=== PATIENT | female | born 1950 | race Asian ===

== ENCOUNTER 2017-08-06 12:47 | Emergency (ER) | payer OTHER ==
[~2017-08-06] VITALS: Ht 142.2 cm; Wt 50.0 kg
[2017-08-06] MEDS ORDERED: ISOS10TA16 PO (12:57)
[2017-08-06] MEDS ORDERED: ASPI-556 PO (12:57)
[2017-08-06] MEDS ORDERED: OLAN10TA3 PO (12:57)
[2017-08-06] MEDS ORDERED: SODIUM CHLORIDE 0.9% 1,000 ML IV ONE (13:15)
[2017-08-06] MEDS ORDERED: KETOROLAC TROMETHAMINE 30 MG/ML VIAL IVP ONE (13:15)
[2017-08-06 13:37] LABS: BASOPHILS % (AUTO) 0.3 % (0.0-2.0); EOSINOPHILS % (AUTO) 1.7 % (1.0-6.0); HEMATOCRIT 30.2 % (36-46); HEMOGLOBIN 10.5 g/dL (12.0-16.0); LYMPHOCYTES # (AUTO) 1.2 K/uL (1.0-4.8); LYMPHOCYTES % (AUTO) 43.2 % (22.0-44.0); MEAN CORPUSCULAR HEMOGLOBIN 31.7 pg (26.0-34.0); MEAN CORPUSCULAR HGB CONC 34.9 G/dL (31.0-37.0); MEAN CORPUSCULAR VOLUME 91 fL (80-100); MONOCYTES # (AUTO) 0.2 K/uL (0.1-1.0); MONOCYTES % (AUTO) 7.9 % (2.0-9.0); NEUTROPHILS # (AUTO) 1.3 K/uL (1.8-7.7); NEUTROPHILS % (AUTO) 46.9 % (40.0-70.0); PLATELET COUNT (AUTO) 156 K/uL (150-450); RED BLOOD CELL COUNT(AUTO) 3.31 MIL/uL (4.00-5.20); RED CELL DISTRIBUTION WIDTH 13.1 % (11.5-14.5); WHITE BLOOD COUNT (AUTO) 2.8 K/uL (4.5-11.0)
[2017-08-06 13:42] LABS: ANION GAP 8 mmol/L (8-16); CALCIUM, TOTAL 8.2 mg/dL (8.8-10.5); CARBON DIOXIDE 28 mmol/L (22-29); CHLORIDE 96 mmol/L (98-107); CREATININE 0.67 mg/dL (0.60-1.30); GLOMERULAR FILTR. RATE CALC > 60 mL/min (>60); POTASSIUM 3.3 mmol/L (3.5-5.1); SODIUM SERUM 132 mmol/L (136-145); UREA NITROGEN, BLOOD 6 mg/dL (7-18)
[2017-08-06 13:48] LABS: ALANINE AMINOTRANSFERASE 28 U/L (12-78); ALBUMIN 3.9 g/dL (3.4-5.0); ASPARTATE AMINOTRANSFERASE 36 U/L (15-37); BILIRUBIN,TOTAL 1.2 mg/dL (0.1-1.0); TOTAL PROTEIN, SERUM 7.7 g/dL (6.4-8.2)
[2017-08-06 14:24] LABS: APPEARANCE,URINE CLEAR (CLEAR); GLUCOSE, URINE (UA) NEGATIVE (NEGATIVE); KETONES,URINE NEGATIVE (NEGATIVE); LEUKOCYTE ESTERASE ,URINE TRACE (NEGATIVE); PROTEIN,URINE NEGATIVE (NEGATIVE)
[2017-08-06 14:36] LABS: ADD UA MICROSCOPIC YES; OCCULT BLOOD,URINE SMALL (NEGATIVE)
[2017-08-06 14:37] LABS: WBC,URINE 0-2 /HPF (0-5)
[2017-08-06 15:11] VITALS: BP 114/68
== END 2017-08-06 15:29 | disposition home or self-care (01) ==
LOC: EMS 12:48
DX: R10.9 Unspecified abdominal pain (principal)
CPT/HCPCS: 36415; 71010; 74176; 80053; 81001; 83690; 84484; 85025; 93005; 96361; 96374; 99285; J1885; J7030

== ENCOUNTER 2018-12-07 16:19 | Emergency (ER) | payer OTHER ==
[~2018-12-07] VITALS: Ht 147.3 cm; Wt 44.1 kg
[~2018-12-07 16:19] MED LIST: ARIP5TAB8 PO; SIMV-261 PO; TRAZ-219 PO
[2018-12-07 17:07] LABS: BASOPHILS % (AUTO) 0.5 % (0.0-2.0); EOSINOPHILS % (AUTO) 5.1 % (1.0-6.0); HEMATOCRIT 28.6 % (36-46); LYMPHOCYTES # (AUTO) 1.3 K/uL (1.0-4.8); LYMPHOCYTES % (AUTO) 47.7 % (22.0-44.0); MEAN CORPUSCULAR HEMOGLOBIN 31.7 pg (26.0-34.0); MEAN CORPUSCULAR HGB CONC 34.9 G/dL (31.0-37.0); MEAN CORPUSCULAR VOLUME 91 fL (80-100); MONOCYTES # (AUTO) 0.2 K/uL (0.1-1.0); MONOCYTES % (AUTO) 9.1 % (2.0-9.0); NEUTROPHILS % (AUTO) 37.6 % (40.0-70.0); PLATELET COUNT (AUTO) 222 K/uL (150-450); RED BLOOD CELL COUNT(AUTO) 3.15 MIL/uL (4.00-5.20); RED CELL DISTRIBUTION WIDTH 12.6 % (11.5-14.5)
[2018-12-07 17:13] LABS: APPEARANCE,URINE CLEAR (CLEAR); BILIRUBIN,URINE NEGATIVE (NEGATIVE); GLUCOSE, URINE (UA) NEGATIVE (NEGATIVE); KETONES,URINE NEGATIVE (NEGATIVE); LEUKOCYTE ESTERASE ,URINE TRACE (NEGATIVE); NITRATE,URINE NEGATIVE (NEGATIVE); OCCULT BLOOD,URINE SMALL (NEGATIVE); PROTEIN,URINE NEGATIVE (NEGATIVE)
[2018-12-07 17:22] LABS: ANION GAP 11 mmol/L (8-16); CALCIUM, TOTAL 8.7 mg/dL (8.8-10.5); CARBON DIOXIDE 24 mmol/L (22-29); CHLORIDE 92 mmol/L (98-107); CREATININE 0.57 mg/dL (0.60-1.30); GLOMERULAR FILTR. RATE CALC > 60 mL/min (>60); GLUCOSE,RANDOM 92 mg/dL (70-110); POTASSIUM 4.1 mmol/L (3.5-5.1); SODIUM SERUM 127 mmol/L (136-145); UREA NITROGEN, BLOOD 11 mg/dL (7-18)
[2018-12-07 17:29] LABS: ALANINE AMINOTRANSFERASE 30 U/L (12-78); ALBUMIN 3.8 g/dL (3.4-5.0); ALKALINE PHOSPHATASE 223 U/L (46-116); ASPARTATE AMINOTRANSFERASE 47 U/L (15-37); BILIRUBIN,TOTAL 0.6 mg/dL (0.1-1.0); TOTAL PROTEIN, SERUM 8.3 g/dL (6.4-8.2)
[2018-12-07 17:35] LABS: BACTERIA,URINE None Seen /HPF (None Seen); RBC,URINE 0-2 /HPF (0-2); SQUAMOUS EPITHELIAL CELL,UR Few /LPF (None Seen); WBC,URINE 0-2 /HPF (0-5)
[2018-12-07] MEDS ORDERED: IBUPROFEN 400 MG TABLET PO ONE (21:15)
[2018-12-07 21:30] VITALS: BP 144/78
== END 2018-12-07 23:31 | disposition home or self-care (01) ==
LOC: EMS 16:20
DX: E87.1 Hypo-osmolality and hyponatremia (principal); M25.562 Pain in left knee; G89.29 Other chronic pain; D72.829 Elevated white blood cell count, unspecified; F32.9 Major depressive disorder, single episode, unspecified; E78.00 Pure hypercholesterolemia, unspecified
CPT/HCPCS: 29530

== ENCOUNTER 2018-12-21 18:46 | Emergency (ER) | payer OTHER ==
[~2018-12-21] VITALS: Ht 142.2 cm; Wt 50.0 kg
[2018-12-21] MEDS ORDERED: LIDOCAINE 5% TRANSDERMAL PATCH TD ONE (21:30)
[2018-12-21 21:32] LABS: BASOPHILS % (AUTO) 0.5 % (0.0-2.0); EOSINOPHILS % (AUTO) 3.1 % (1.0-6.0); HEMATOCRIT 27.7 % (36-46); HEMOGLOBIN 9.6 g/dL (12.0-16.0); LYMPHOCYTES # (AUTO) 1.8 K/uL (1.0-4.8); LYMPHOCYTES % (AUTO) 51.7 % (22.0-44.0); MEAN CORPUSCULAR HEMOGLOBIN 31.5 pg (26.0-34.0); MEAN CORPUSCULAR HGB CONC 34.7 G/dL (31.0-37.0); MEAN CORPUSCULAR VOLUME 91 fL (80-100); MONOCYTES # (AUTO) 0.2 K/uL (0.1-1.0); MONOCYTES % (AUTO) 7.2 % (2.0-9.0); NEUTROPHILS # (AUTO) 1.3 K/uL (1.8-7.7); NEUTROPHILS % (AUTO) 37.5 % (40.0-70.0); PLATELET COUNT (AUTO) 287 K/uL (150-450); RED BLOOD CELL COUNT(AUTO) 3.05 MIL/uL (4.00-5.20); RED CELL DISTRIBUTION WIDTH 12.5 % (11.5-14.5)
[2018-12-21 21:49] LABS: ANION GAP 12 mmol/L (8-16); CARBON DIOXIDE 25 mmol/L (22-29); CHLORIDE 92 mmol/L (98-107); CREATININE 0.75 mg/dL (0.60-1.30); GLOMERULAR FILTR. RATE CALC > 60 mL/min (>60); GLUCOSE,RANDOM 96 mg/dL (70-110); POTASSIUM 4.5 mmol/L (3.5-5.1); SODIUM SERUM 129 mmol/L (136-145); UREA NITROGEN, BLOOD 11 mg/dL (7-18)
[2018-12-21 21:55] LABS: ALANINE AMINOTRANSFERASE 41 U/L (12-78); ALBUMIN 3.8 g/dL (3.4-5.0); ALKALINE PHOSPHATASE 227 U/L (46-116); ASPARTATE AMINOTRANSFERASE 71 U/L (15-37); BILIRUBIN,TOTAL 0.4 mg/dL (0.1-1.0); TOTAL PROTEIN, SERUM 8.2 g/dL (6.4-8.2)
[2018-12-21 22:03] LABS: APPEARANCE,URINE CLEAR (CLEAR); BILIRUBIN,URINE NEGATIVE (NEGATIVE); GLUCOSE, URINE (UA) NEGATIVE (NEGATIVE); KETONES,URINE NEGATIVE (NEGATIVE); LEUKOCYTE ESTERASE ,URINE SMALL (NEGATIVE); NITRATE,URINE NEGATIVE (NEGATIVE); OCCULT BLOOD,URINE SMALL (NEGATIVE); PROTEIN,URINE NEGATIVE (NEGATIVE)
[2018-12-21 22:12] LABS: BACTERIA,URINE None Seen /HPF (None Seen); RBC,URINE 0-2 /HPF (0-2); SQUAMOUS EPITHELIAL CELL,UR Rare /LPF (None Seen); WBC,URINE 0-2 /HPF (0-5)
[2018-12-21 22:48] VITALS: BP 133/80
== END 2018-12-21 23:04 | disposition home or self-care (01) ==
LOC: EMS 18:48
DX: R60.0 Localized edema (principal); M79.89 Other specified soft tissue disorders; F32.9 Major depressive disorder, single episode, unspecified; E78.00 Pure hypercholesterolemia, unspecified
CPT/HCPCS: 93971

== ENCOUNTER 2019-12-12 17:28 | Inpatient (IN) | payer OTHER ==
[~2019-12-12] VITALS: Ht 154.9 cm; Wt 43.2 kg
[~2019-12-12 17:28] MED LIST changes: -TRAZ-219 PO; +TRAZ-252 PO
[2019-12-12] MEDS ORDERED: MethylPREDNISolone SOD SUCC 125 MG/2 ML VIAL IVP ONE (18:00)
[2019-12-12] MEDS ORDERED: DiphenhydrAMINE HCL 50 MG/ML VIAL IVP ONE (18:00)
[2019-12-12] MEDS ORDERED: FAMOTIDINE 10 MG/ML 2 ML VIAL IVP ONE (18:00)
[2019-12-12 19:03] LABS: EOSINOPHILS % (AUTO) 3.8 % (1.0-6.0); HEMATOCRIT 25.4 % (36-46); HEMOGLOBIN 8.6 g/dL (12.0-16.0); LYMPHOCYTES # (AUTO) 0.9 K/uL (1.0-4.8); LYMPHOCYTES % (AUTO) 14.9 % (22.0-44.0); MEAN CORPUSCULAR HEMOGLOBIN 30.7 pg (26.0-34.0); MEAN CORPUSCULAR HGB CONC 33.7 G/dL (31.0-37.0); MEAN CORPUSCULAR VOLUME 91 fL (80-100); MONOCYTES # (AUTO) 0.5 K/uL (0.1-1.0); MONOCYTES % (AUTO) 8.4 % (2.0-9.0); NEUTROPHILS # (AUTO) 4.2 K/uL (1.8-7.7); NEUTROPHILS % (AUTO) 71.9 % (40.0-70.0); PLATELET COUNT (AUTO) 202 K/uL (150-450); RED BLOOD CELL COUNT(AUTO) 2.79 MIL/uL (4.00-5.20); RED CELL DISTRIBUTION WIDTH 13.3 % (11.5-14.5)
[2019-12-12 19:22] LABS: ALANINE AMINOTRANSFERASE 26 U/L (12-78); ALBUMIN 3.3 g/dL (3.4-5.0); ALKALINE PHOSPHATASE 163 U/L (46-116); ANION GAP 9 mmol/L (8-16); ASPARTATE AMINOTRANSFERASE 38 U/L (15-37); BILIRUBIN,TOTAL 0.8 mg/dL (0.1-1.0); CALCIUM, TOTAL 8.3 mg/dL (8.8-10.5); CARBON DIOXIDE 25 mmol/L (22-29); CHLORIDE 85 mmol/L (98-107); GLUCOSE,RANDOM 87 mg/dL (70-110); POTASSIUM 3.9 mmol/L (3.5-5.1); TOTAL PROTEIN, SERUM 7.8 g/dL (6.4-8.2); UREA NITROGEN, BLOOD 9 mg/dL (7-18)
[2019-12-12 19:27] LABS: GLOMERULAR FILTR. RATE CALC > 60 mL/min (>60); SODIUM SERUM 119 mmol/L (136-145)
[2019-12-12] MEDS ORDERED: SODIUM CHLORIDE 0.9% 1,000 ML IV ONE (19:45)
[2019-12-12] MEDS ORDERED: 0.9% SODIUM CHLORIDE 10 ML SYRINGE IVP PRN (20:45)
[2019-12-12] MEDS ORDERED: ONDANSETRON HCL 4 MG/2 ML VIAL IVP PRN (20:45)
[2019-12-12] MEDS ORDERED: ACETAMINOPHEN 325 MG TABLET PO PRN (20:45)
[2019-12-12 21:25] VITALS: BP 104/60
[2019-12-12] MEDS ORDERED: INFLUENZA VIRUS VACCINE QVS 2019-20 (3YR+)/PF 60 MCG/0.5 ML SYRINGE IM ONE (22:45)
[2019-12-12 23:52] LABS: CALCIUM, TOTAL 8.5 mg/dL (8.8-10.5); CREATININE 0.95 mg/dL (0.60-1.30); POTASSIUM 4.2 mmol/L (3.5-5.1)
[2019-12-13] MEDS ORDERED: ONDANSETRON HCL 4 MG/2 ML VIAL IVP PRN (03:00)
[2019-12-13] MEDS ORDERED: 0.9% SODIUM CHLORIDE 10 ML SYRINGE IVP PRN (03:00)
[2019-12-13] MEDS ORDERED: OxyCODONE HCL/ACETAMINOPHEN 5-325 MG TABLET PO PRN ×2 (03:00)
[2019-12-13] MEDS: MethylPREDNISolone SOD SUCC 40 MG/ML VIAL IVP SCH ×4 (03:42→23:58)
[2019-12-13] MEDS: DOCUSATE SODIUM 100 MG CAPSULE PO SCH ×3 (03:43→20:13)
[2019-12-13] MEDS: SODIUM CHLORIDE 0.9% 1,000 ML IV SCH ×3 (03:44→23:58)
[2019-12-13 05:10] VITALS: BP 98/58
[2019-12-13 07:40] VITALS: BP 117/70
[2019-12-13 08:10] LABS: BASOPHILS % (AUTO) 0.1 % (0.0-2.0); EOSINOPHILS % (AUTO) 0 % (1.0-6.0); HEMATOCRIT 28.5 % (36-46); HEMOGLOBIN 9.7 g/dL (12.0-16.0); LYMPHOCYTES # (AUTO) 0.5 K/uL (1.0-4.8); LYMPHOCYTES % (AUTO) 13.2 % (22.0-44.0); MEAN CORPUSCULAR HEMOGLOBIN 30.9 pg (26.0-34.0); MEAN CORPUSCULAR HGB CONC 33.8 G/dL (31.0-37.0); MEAN CORPUSCULAR VOLUME 91 fL (80-100); MONOCYTES % (AUTO) 0.8 % (2.0-9.0); NEUTROPHILS # (AUTO) 3.3 K/uL (1.8-7.7); PLATELET COUNT (AUTO) 227 K/uL (150-450); RED BLOOD CELL COUNT(AUTO) 3.13 MIL/uL (4.00-5.20); RED CELL DISTRIBUTION WIDTH 13.4 % (11.5-14.5)
[2019-12-13 08:14] LABS: NEUTROPHILS % (AUTO) 85.9 % (40.0-70.0)
[2019-12-13 08:24] LABS: ALBUMIN 3.8 g/dL (3.4-5.0); BILIRUBIN,TOTAL 0.6 mg/dL (0.1-1.0); CALCIUM, TOTAL 9.6 mg/dL (8.8-10.5); CREATININE 0.93 mg/dL (0.60-1.30); POTASSIUM 4.2 mmol/L (3.5-5.1); TOTAL PROTEIN, SERUM 9.3 g/dL (6.4-8.2)
[2019-12-13] MEDS: FAMOTIDINE 10 MG/ML 2 ML VIAL IVP SCH (08:28)
[2019-12-13 08:31] LABS: % IRON SATURATION 11.7 % (22-44)
[2019-12-13 16:20] VITALS: BP 138/94
[2019-12-13 20:00] VITALS: BP 117/62
[2019-12-14 00:15] VITALS: BP 118/75
[2019-12-14 07:30] LABS: ANION GAP 12 mmol/L (8-16); CALCIUM, TOTAL 8.4 mg/dL (8.8-10.5); CARBON DIOXIDE 21 mmol/L (22-29); CHLORIDE 99 mmol/L (98-107); CREATININE 0.66 mg/dL (0.60-1.30); GLUCOSE,RANDOM 124 mg/dL (70-110); POTASSIUM 4.4 mmol/L (3.5-5.1); SODIUM SERUM 132 mmol/L (136-145); UREA NITROGEN, BLOOD 18 mg/dL (7-18)
[2019-12-14 07:32] LABS: GLOMERULAR FILTR. RATE CALC > 60 mL/min (>60)
[2019-12-14] MEDS: MethylPREDNISolone SOD SUCC 40 MG/ML VIAL IVP SCH (07:56)
[2019-12-14] MEDS: DOCUSATE SODIUM 100 MG CAPSULE PO SCH (07:56)
[2019-12-14] MEDS: FAMOTIDINE 10 MG/ML 2 ML VIAL IVP SCH (07:56)
[2019-12-14 08:08] VITALS: BP 122/71
[2019-12-14 09:01] LABS: BASOPHILS % (AUTO) 0.1 % (0.0-2.0); EOSINOPHILS % (AUTO) 0 % (1.0-6.0); HEMATOCRIT 22.4 % (36-46); HEMOGLOBIN 7.8 g/dL (12.0-16.0); LYMPHOCYTES # (AUTO) 0.5 K/uL (1.0-4.8); LYMPHOCYTES % (AUTO) 5.6 % (22.0-44.0); MEAN CORPUSCULAR HEMOGLOBIN 31.7 pg (26.0-34.0); MEAN CORPUSCULAR HGB CONC 34.7 G/dL (31.0-37.0); MEAN CORPUSCULAR VOLUME 91 fL (80-100); MONOCYTES # (AUTO) 0.1 K/uL (0.1-1.0); MONOCYTES % (AUTO) 1.7 % (2.0-9.0); NEUTROPHILS # (AUTO) 7.9 K/uL (1.8-7.7); NEUTROPHILS % (AUTO) 92.6 % (40.0-70.0); PLATELET COUNT (AUTO) 224 K/uL (150-450); RED BLOOD CELL COUNT(AUTO) 2.45 MIL/uL (4.00-5.20); RED CELL DISTRIBUTION WIDTH 13.6 % (11.5-14.5)
[2019-12-14] MEDS: SODIUM CHLORIDE 0.9% 1,000 ML IV SCH (09:07)
[2019-12-14 11:45] VITALS: BP 110/66
[2019-12-14 15:23] VITALS: BP 123/70
[2019-12-14] MEDS ORDERED: DULO20CA30 PO (15:29)
[2019-12-14] MEDS ORDERED: FAMO20 PO (15:45)
[2019-12-14] MEDS ORDERED: FAMO10VI2 PO (15:55)
== END 2019-12-14 16:30 | disposition home or self-care (01) | DRG 641 ==
LOC: EMS 17:28 → 6N 19:00 → 4E 12-13 18:44
PROVIDERS: ADMIT Internal Medicine; ATTEND Internal Medicine
DX: E87.1 Hypo-osmolality and hyponatremia (principal); E44.0 Moderate protein-calorie malnutrition; Z68.1 Body mass index [BMI] 19.9 or less, adult; E78.00 Pure hypercholesterolemia, unspecified; F32.9 Major depressive disorder, single episode, unspecified; T78.49XA Other allergy, initial encounter; X58.XXXA Exposure to other specified factors, initial encounter; D64.9 Anemia, unspecified
CPT/HCPCS: 83540; 83550; 99291; G0378; J1200; J2920; J2930; J3490; J7030

== ENCOUNTER 2020-07-04 10:09 | Inpatient (IN) | payer OTHER ==
[~2020-07-04] VITALS: Ht 152.4 cm; Wt 51.3 kg
[~2020-07-04 10:09] MED LIST changes: -ARIP5TAB8 PO; +DULO20CA27 PO; +FAMO10VI2 PO; +FAMO20 PO; -TRAZ-252 PO
[2020-07-04] MEDS ORDERED: SODIUM CHLORIDE 0.9% 500 ML IV ONE (11:00)
[2020-07-04 12:11] LABS: BASOPHILS % (AUTO) 0.3 % (0.0-2.0); EOSINOPHILS % (AUTO) 0.4 % (1.0-6.0); HEMATOCRIT 21.3 % (36-46); HEMOGLOBIN 7.3 g/dL (12.0-16.0); LYMPHOCYTES # (AUTO) 0.3 K/uL (1.0-4.8); LYMPHOCYTES % (AUTO) 4.4 % (22.0-44.0); MEAN CORPUSCULAR HEMOGLOBIN 32.1 pg (26.0-34.0); MEAN CORPUSCULAR HGB CONC 34.5 G/dL (31.0-37.0); MEAN CORPUSCULAR VOLUME 93 fL (80-100); MONOCYTES # (AUTO) 0.8 K/uL (0.1-1.0); MONOCYTES % (AUTO) 10.1 % (2.0-9.0); NEUTROPHILS # (AUTO) 6.4 K/uL (1.8-7.7); NEUTROPHILS % (AUTO) 84.8 % (40.0-70.0); PLATELET COUNT (AUTO) 273 K/uL (150-450); RED BLOOD CELL COUNT(AUTO) 2.29 MIL/uL (4.00-5.20); RED CELL DISTRIBUTION WIDTH 22.2 % (11.5-14.5)
[2020-07-04 12:11] LABS: GLUCOSE,POINT OF CARE 120 MG/DL (70-110)
[2020-07-04 12:13] LABS: ANION GAP 9 mmol/L (8-16); CALCIUM, TOTAL 8.7 mg/dL (8.8-10.5); CARBON DIOXIDE 25 mmol/L (22-29); CHLORIDE 93 mmol/L (98-107); GLOMERULAR FILTR. RATE CALC 55 mL/min (>60); GLUCOSE,RANDOM 136 mg/dL (70-110); POTASSIUM 3.4 mmol/L (3.5-5.1); SODIUM SERUM 127 mmol/L (136-145); UREA NITROGEN, BLOOD 10 mg/dL (7-18)
[2020-07-04 12:20] LABS: AMMONIA < 10 umol/L (11-32); TROPONIN I < 0.02 ng/mL (0.00-0.05)
[2020-07-04 12:21] LABS: ACETAMINOPHEN < 2 mcg/mL (10-30); ALANINE AMINOTRANSFERASE 49 U/L (12-78); ALBUMIN 2.9 g/dL (3.4-5.0); ALKALINE PHOSPHATASE 626 U/L (46-116); ASPARTATE AMINOTRANSFERASE 99 U/L (15-37); BILIRUBIN,TOTAL 22.6 mg/dL (0.1-1.0); LIPASE 86 U/L (73-393); TOTAL PROTEIN, SERUM 7.1 g/dL (6.4-8.2)
[2020-07-04 12:23] LABS: INR 1.2 (0.9-1.1); PROTHROMBIN TIME 12.8 SEC (9.4-11.6)
[2020-07-04 12:24] LABS: SALICYLATE < 0.2 mg/dL (2.8-20.0)
[2020-07-04 12:32] LABS: LACTIC ACID 2.1 mmol/L (0.4-2.0)
[2020-07-04] MEDS ORDERED: MIDAZOLAM HCL 2 MG/2 ML VIAL IVP ONE (13:45)
[2020-07-04] MEDS ORDERED: MORPHINE SULFATE 4 MG/ML SYRINGE ONE (14:12)
[2020-07-04] MEDS ORDERED: MORPHINE SULFATE 4 MG/ML SYRINGE IM ONE (14:15)
[2020-07-04] MEDS ORDERED: PIPERACILLIN/TAZO 3.375 GM/D5W 50 ML IV ONE (15:15)
[2020-07-04] MEDS ORDERED: SODIUM CHLORIDE 0.9% 1,000 ML IV ONE ×2 (15:45)
[2020-07-04] MEDS ORDERED: 0.9% SODIUM CHLORIDE 10 ML SYRINGE IVP PRN (15:45)
[2020-07-04] MEDS ORDERED: ACETAMINOPHEN 325 MG TABLET PO PRN (15:45)
[2020-07-04] MEDS ORDERED: NOREPINEPHRINE 4 MG/D5%-WATER 250 ML IV PRN (15:45)
[2020-07-04] MEDS ORDERED: ONDANSETRON HCL 4 MG/2 ML VIAL IVP PRN (15:45)
[2020-07-04] MEDS ORDERED: BISACODYL 10 MG RECTAL RECTAL SUPPOSITORY PR PRN (15:45)
[2020-07-04] MEDS ORDERED: ALBUTEROL SULFATE 2.5 MG/0.5 ML NEB SOLUTION NEB PRN (15:45)
[2020-07-04] MEDS ORDERED: IPRATROPIUM BROMIDE 0.5 MG/2.5 ML NEB SOLUTION NEB PRN (15:45)
[2020-07-04] MEDS ORDERED: ASPI-1111 PO (15:58)
[2020-07-04] MEDS ORDERED: QUET25TA34 PO (15:58)
[2020-07-04] MEDS ORDERED: MORPHINE SULFATE 2 MG/ML SYRINGE IVP PRN (16:00)
[2020-07-04 16:20] LABS: B-TYPE NATRIURETIC PEPTIDE 532 pg/mL (0-100)
[2020-07-04] MEDS ORDERED: GADOBUTROL 1 MMOL/ML 10 ML VIAL IVP ONE (16:32)
[2020-07-04] MEDS: PANTOPRAZOLE SODIUM 40 MG/VIAL IVP SCH (16:55)
[2020-07-04 18:18] VITALS: BP 96/66
[2020-07-04] MEDS ORDERED: IOVERSOL 350 MG/ML 100 ML VIAL ONE (20:08)
[2020-07-04] MEDS ORDERED: SODIUM CHLORIDE 0.9% 100 ML ONE (20:08)
[2020-07-04 20:26] VITALS: BP 95/54
[2020-07-04 20:28] VITALS: BP 95/54
[2020-07-04 20:58] LABS: ANION GAP 8 mmol/L (8-16); CALCIUM, TOTAL 7.7 mg/dL (8.8-10.5); CARBON DIOXIDE 24 mmol/L (22-29); CHLORIDE 102 mmol/L (98-107); CREATININE 0.89 mg/dL (0.60-1.30); GLOMERULAR FILTR. RATE CALC > 60 mL/min (>60); GLUCOSE,RANDOM 100 mg/dL (70-110); POTASSIUM 3.6 mmol/L (3.5-5.1); SODIUM SERUM 134 mmol/L (136-145); UREA NITROGEN, BLOOD 8 mg/dL (7-18)
[2020-07-04] MEDS ORDERED: PIPERACILLIN SODIUM/TAZOBACTAM 2.25 GM in DEXTROSE 5%-WATER 50 ML IV SCH (22:00)
[2020-07-04] MEDS: PIPERACILLIN SODIUM/TAZOBACTAM 2.25 GM in DEXTROSE 5%-WATER 50 ML IV SCH (22:57)
[2020-07-05] VITALS (16 sets, daily range): BP systolic 89–132; BP diastolic 45–82
[2020-07-05] MEDS ORDERED: SODIUM CHLORIDE 0.9% 500 ML IV ONE (00:45)
[2020-07-05] MEDS: SODIUM CHLORIDE 0.9% 1,000 ML IV SCH ×2 (00:55→11:00)
[2020-07-05 03:09] LABS: ANION GAP 10 mmol/L (8-16); CALCIUM, TOTAL 7.7 mg/dL (8.8-10.5); CARBON DIOXIDE 23 mmol/L (22-29); CHLORIDE 101 mmol/L (98-107); CREATININE 0.61 mg/dL (0.60-1.30); GLUCOSE,RANDOM 78 mg/dL (70-110); POTASSIUM 3.5 mmol/L (3.5-5.1); SODIUM SERUM 134 mmol/L (136-145); UREA NITROGEN, BLOOD 7 mg/dL (7-18)
[2020-07-05 03:16] LABS: GLOMERULAR FILTR. RATE CALC > 60 mL/min (>60)
[2020-07-05] MEDS: PIPERACILLIN SODIUM/TAZOBACTAM 2.25 GM in DEXTROSE 5%-WATER 50 ML IV SCH (04:29)
[2020-07-05 07:44] LABS: MEAN CORPUSCULAR HEMOGLOBIN 32.1 pg (26.0-34.0); MEAN CORPUSCULAR HGB CONC 33.9 G/dL (31.0-37.0); MEAN CORPUSCULAR VOLUME 95 fL (80-100); PLATELET COUNT (AUTO) 240 K/uL (150-450); RED BLOOD CELL COUNT(AUTO) 2.03 MIL/uL (4.00-5.20); RED CELL DISTRIBUTION WIDTH 22.3 % (11.5-14.5)
[2020-07-05 08:17] LABS: ALANINE AMINOTRANSFERASE 43 U/L (12-78); ALBUMIN 2.2 g/dL (3.4-5.0); ALKALINE PHOSPHATASE 503 U/L (46-116); ANION GAP 8 mmol/L (8-16); ASPARTATE AMINOTRANSFERASE 95 U/L (15-37); BILIRUBIN,TOTAL 17.4 mg/dL (0.1-1.0); CALCIUM, TOTAL 7.5 mg/dL (8.8-10.5); CARBON DIOXIDE 23 mmol/L (22-29); CHLORIDE 104 mmol/L (98-107); CHOLESTEROL 72 mg/dL (131-200); CREATININE 0.68 mg/dL (0.60-1.30); FREE T4 (FREE THYROXINE) 1.04 ng/dL (0.76-1.46); GLUCOSE,RANDOM 78 mg/dL (70-110); HDL CHOLESTEROL 9 mg/dL (40-60); LDL CHOL (CALC.) 23 mg/dL (0-130); POTASSIUM 3.4 mmol/L (3.5-5.1); SODIUM SERUM 135 mmol/L (136-145); THYROID STIMULATING HORMONE 1.07 uIU/mL (0.36-3.74); TOTAL PROTEIN, SERUM 5.7 g/dL (6.4-8.2); TRIGLYCERIDES 199 mg/dL (15-150); UREA NITROGEN, BLOOD 6 mg/dL (7-18)
[2020-07-05 08:18] LABS: GLOMERULAR FILTR. RATE CALC > 60 mL/min (>60)
[2020-07-05] MEDS: PANTOPRAZOLE SODIUM 40 MG/VIAL IVP SCH ×2 (08:18→20:18)
[2020-07-05 08:47] LABS: HEMATOCRIT 19.2 % (36-46)
[2020-07-05 08:50] LABS: HEMOGLOBIN 6.5 g/dL (12.0-16.0)
[2020-07-05 08:55] LABS: BAND NEUTROPHILS % (MANUAL) 2 % (0-5); LYMPHOCYTES % (MANUAL) 16 % (22-44); MONOCYTES % (MANUAL) 5 % (2-9); SEGMENTED NEUTROPHILS % 77 % (40-70)
[2020-07-05] MEDS: PIPERACILLIN/TAZO 3.375 GM/D5W 50 ML IV SCH ×3 (11:25→22:09)
[2020-07-05] MEDS ORDERED: IOTHALAMATE MEGLUMINE 600 MG/ML 50 ML VIAL IVP ONE ×2 (11:45→11:46)
[2020-07-05] MEDS ORDERED: SODIUM CHLORIDE 0.9% 250 ML IV ONE (13:45)
[2020-07-05 22:00] LABS: HEMATOCRIT 25.2 % (36-46); HEMOGLOBIN 8.7 g/dL (12.0-16.0)
[2020-07-05 22:23] LABS: ANION GAP 9 mmol/L (8-16); CALCIUM, TOTAL 7.7 mg/dL (8.8-10.5); CARBON DIOXIDE 23 mmol/L (22-29); CHLORIDE 101 mmol/L (98-107); CREATININE 0.85 mg/dL (0.60-1.30); GLUCOSE,RANDOM 80 mg/dL (70-110); SODIUM SERUM 133 mmol/L (136-145); UREA NITROGEN, BLOOD 7 mg/dL (7-18)
[2020-07-05 22:28] LABS: GLOMERULAR FILTR. RATE CALC > 60 mL/min (>60)
[2020-07-06] MEDS ORDERED: POTASSIUM CHLORIDE 20 MEQ ER TABLET PO ONE ×2 (01:15→02:45)
[2020-07-06] MEDS: SODIUM CHLORIDE 0.9% 1,000 ML IV SCH ×2 (01:23→23:22)
[2020-07-06 03:37] VITALS: BP 100/58
[2020-07-06] MEDS: PIPERACILLIN/TAZO 3.375 GM/D5W 50 ML IV SCH ×4 (04:17→21:10)
[2020-07-06 06:05] LABS: BASOPHILS % (AUTO) 0.5 % (0.0-2.0); EOSINOPHILS % (AUTO) 0.9 % (1.0-6.0); HEMOGLOBIN 9.8 g/dL (12.0-16.0); LYMPHOCYTES # (AUTO) 0.2 K/uL (1.0-4.8); LYMPHOCYTES % (AUTO) 3.1 % (22.0-44.0); MEAN CORPUSCULAR HEMOGLOBIN 31.8 pg (26.0-34.0); MEAN CORPUSCULAR HGB CONC 34.9 G/dL (31.0-37.0); MEAN CORPUSCULAR VOLUME 91 fL (80-100); MONOCYTES # (AUTO) 0.7 K/uL (0.1-1.0); MONOCYTES % (AUTO) 10.4 % (2.0-9.0); NEUTROPHILS # (AUTO) 5.7 K/uL (1.8-7.7); NEUTROPHILS % (AUTO) 85.1 % (40.0-70.0); PLATELET COUNT (AUTO) 242 K/uL (150-450); RED BLOOD CELL COUNT(AUTO) 3.07 MIL/uL (4.00-5.20); RED CELL DISTRIBUTION WIDTH 20.5 % (11.5-14.5)
[2020-07-06 07:57] LABS: ALANINE AMINOTRANSFERASE 50 U/L (12-78); ALBUMIN 2.4 g/dL (3.4-5.0); ALKALINE PHOSPHATASE 626 U/L (46-116); ASPARTATE AMINOTRANSFERASE 136 U/L (15-37); BILIRUBIN,TOTAL 21.4 mg/dL (0.1-1.0); CALCIUM, TOTAL 7.9 mg/dL (8.8-10.5); CARBON DIOXIDE 21 mmol/L (22-29); CREATININE 0.86 mg/dL (0.60-1.30); GLOMERULAR FILTR. RATE CALC > 60 mL/min (>60); GLUCOSE,RANDOM 76 mg/dL (70-110); TOTAL PROTEIN, SERUM 6.1 g/dL (6.4-8.2); UREA NITROGEN, BLOOD 6 mg/dL (7-18)
[2020-07-06 08:05] LABS: ANION GAP 11 mmol/L (8-16); CHLORIDE 103 mmol/L (98-107); POTASSIUM 3.8 mmol/L (3.5-5.1); SODIUM SERUM 135 mmol/L (136-145)
[2020-07-06 08:06] VITALS: BP 114/58
[2020-07-06] MEDS: PANTOPRAZOLE SODIUM 40 MG/VIAL IVP SCH ×2 (08:50→21:09)
[2020-07-06] MEDS ORDERED: FLUMAZENIL 0.1 MG/ML 5 ML VIAL IVP ONE (10:09)
[2020-07-06] MEDS ORDERED: NALOXONE HCL 0.4 MG/ML VIAL ONE (10:09)
[2020-07-06] MEDS ORDERED: FentaNYL CITRATE-PF 100 MCG/2 ML VIAL ONE (10:09)
[2020-07-06] MEDS ORDERED: MIDAZOLAM HCL 2 MG/2 ML VIAL ONE (10:09)
[2020-07-06 11:49] VITALS: BP 119/71
[2020-07-06] MEDS ORDERED: ROCURONIUM BROMIDE 10 MG/ML 5 ML VIAL IVP ONE (12:00)
[2020-07-06] MEDS ORDERED: MIDAZOLAM HCL 2 MG/2 ML VIAL IVP ONE (12:00)
[2020-07-06] MEDS ORDERED: PROPOFOL 1% 20 ML VIAL IVP ONE (12:00)
[2020-07-06] MEDS ORDERED: LIDOCAINE/PF 2% 5 ML VIAL INJ ONE (12:00)
[2020-07-06] MEDS ORDERED: SUCCINYLCHOLINE CHLORIDE 20 MG/ML 10 ML VIAL IVP ONE (12:00)
[2020-07-06] MEDS ORDERED: PHENYLEPHRINE HCL 10 MG/ML VIAL IVP ONE (12:00)
[2020-07-06] MEDS ORDERED: FentaNYL CITRATE-PF 100 MCG/2 ML VIAL IVP ONE (12:00)
[2020-07-06] MEDS ORDERED: SODIUM CHLORIDE 0.9% 1,000 ML ONE ×2 (12:23→14:02)
[2020-07-06] MEDS ORDERED: SODIUM CHLORIDE 0.9% 100 ML ONE (14:11)
[2020-07-06] MEDS ORDERED: PIPERACILLIN/TAZO 3.375 GM/D5W 50 ML IV SCH (14:45)
[2020-07-06 20:11] VITALS: BP 104/67
[2020-07-06 23:55] VITALS: BP 102/71
[2020-07-07] VITALS: BP 102/71
[2020-07-07 04:07] VITALS: BP 116/66
[2020-07-07] MEDS: PIPERACILLIN/TAZO 3.375 GM/D5W 50 ML IV SCH ×4 (04:29→21:20)
[2020-07-07 06:54] LABS: BASOPHILS % (AUTO) 0.4 % (0.0-2.0); EOSINOPHILS % (AUTO) 1.7 % (1.0-6.0); HEMATOCRIT 30.4 % (36-46); HEMOGLOBIN 10.2 g/dL (12.0-16.0); LYMPHOCYTES # (AUTO) 1.2 K/uL (1.0-4.8); LYMPHOCYTES % (AUTO) 15.3 % (22.0-44.0); MEAN CORPUSCULAR HGB CONC 33.4 G/dL (31.0-37.0); MEAN CORPUSCULAR VOLUME 93 fL (80-100); MONOCYTES # (AUTO) 0.5 K/uL (0.1-1.0); MONOCYTES % (AUTO) 6.2 % (2.0-9.0); NEUTROPHILS # (AUTO) 5.9 K/uL (1.8-7.7); NEUTROPHILS % (AUTO) 76.4 % (40.0-70.0); PLATELET COUNT (AUTO) 263 K/uL (150-450); RED BLOOD CELL COUNT(AUTO) 3.28 MIL/uL (4.00-5.20); RED CELL DISTRIBUTION WIDTH 21.6 % (11.5-14.5)
[2020-07-07 07:11] VITALS: BP 114/70
[2020-07-07 07:35] LABS: ALANINE AMINOTRANSFERASE 90 U/L (12-78); ALBUMIN 2.5 g/dL (3.4-5.0); ALKALINE PHOSPHATASE 764 U/L (46-116); ANION GAP 11 mmol/L (8-16); ASPARTATE AMINOTRANSFERASE 360 U/L (15-37); BILIRUBIN,TOTAL 20.7 mg/dL (0.1-1.0); CALCIUM, TOTAL 7.9 mg/dL (8.8-10.5); CARBON DIOXIDE 20 mmol/L (22-29); CHLORIDE 104 mmol/L (98-107); CREATININE 0.83 mg/dL (0.60-1.30); GLUCOSE,RANDOM 94 mg/dL (70-110); POTASSIUM 3.6 mmol/L (3.5-5.1); SODIUM SERUM 135 mmol/L (136-145); TOTAL PROTEIN, SERUM 6.1 g/dL (6.4-8.2); UREA NITROGEN, BLOOD 5 mg/dL (7-18)
[2020-07-07 07:39] LABS: GLOMERULAR FILTR. RATE CALC > 60 mL/min (>60)
[2020-07-07] MEDS: PANTOPRAZOLE SODIUM 40 MG/VIAL IVP SCH ×2 (08:25→20:12)
[2020-07-07 11:43] VITALS: BP 111/74
[2020-07-07] MEDS: SODIUM CHLORIDE 0.9% 1,000 ML IV SCH (13:45)
[2020-07-07 15:59] VITALS: BP 137/80
[2020-07-07 20:00] VITALS: BP 122/83
[2020-07-08] VITALS (7 sets, daily range): BP systolic 109–129; BP diastolic 54–78
[2020-07-08] MEDS: SODIUM CHLORIDE 0.9% 1,000 ML IV SCH ×2 (03:39→21:42)
[2020-07-08] MEDS: PIPERACILLIN/TAZO 3.375 GM/D5W 50 ML IV SCH ×4 (03:39→21:37)
[2020-07-08 05:54] LABS: BASOPHILS % (AUTO) 0.3 % (0.0-2.0); EOSINOPHILS % (AUTO) 1.7 % (1.0-6.0); HEMATOCRIT 28.8 % (36-46); HEMOGLOBIN 9.9 g/dL (12.0-16.0); LYMPHOCYTES # (AUTO) 0.6 K/uL (1.0-4.8); LYMPHOCYTES % (AUTO) 6.8 % (22.0-44.0); MEAN CORPUSCULAR HEMOGLOBIN 31.8 pg (26.0-34.0); MEAN CORPUSCULAR HGB CONC 34.5 G/dL (31.0-37.0); MEAN CORPUSCULAR VOLUME 92 fL (80-100); MONOCYTES # (AUTO) 1.2 K/uL (0.1-1.0); NEUTROPHILS # (AUTO) 6.2 K/uL (1.8-7.7); NEUTROPHILS % (AUTO) 76.2 % (40.0-70.0); PLATELET COUNT (AUTO) 208 K/uL (150-450); RED BLOOD CELL COUNT(AUTO) 3.13 MIL/uL (4.00-5.20); RED CELL DISTRIBUTION WIDTH 21.3 % (11.5-14.5)
[2020-07-08 05:56] LABS: ALBUMIN 2.2 g/dL (3.4-5.0); BILIRUBIN,TOTAL 17.2 mg/dL (0.1-1.0); CALCIUM, TOTAL 7.9 mg/dL (8.8-10.5); CREATININE 0.92 mg/dL (0.60-1.30); POTASSIUM 3.4 mmol/L (3.5-5.1); TOTAL PROTEIN, SERUM 6.2 g/dL (6.4-8.2)
[2020-07-08] MEDS: PANTOPRAZOLE SODIUM 40 MG/VIAL IVP SCH ×2 (08:55→21:09)
[2020-07-08] MEDS ORDERED: POTASSIUM CHLORIDE 20 MEQ ER TABLET PO ONE (14:30)
[2020-07-08] MEDS ORDERED: SODIUM CHLORIDE 0.9% 500 ML IV ONE (21:27)
[2020-07-09] MEDS: PIPERACILLIN/TAZO 3.375 GM/D5W 50 ML IV SCH ×2 (04:00→09:45)
[2020-07-09 04:42] VITALS: BP 114/68
[2020-07-09 08:20] VITALS: BP 137/73
[2020-07-09] MEDS: PANTOPRAZOLE SODIUM 40 MG/VIAL IVP SCH (08:33)
[2020-07-09] MEDS ORDERED: METR500 PO (11:43)
[2020-07-09] MEDS ORDERED: CIPR-278 PO (11:43)
[2020-07-09 13:00] VITALS: BP 128/88
== END 2020-07-09 13:42 | disposition home or self-care (01) | DRG 853 ==
LOC: EMS 10:12 → 5S 17:19 → 4E 07-08 18:16
PROVIDERS: ADMIT Internal Medicine; ATTEND Internal Medicine
PROC: 30233N1 Transfusion of Nonautologous Red Blood Cells into Peripheral Vein, Percutaneous Approach (ICD-10-PCS; 2020-07-05)
PROC: 07B Lymphatic and Hemic Systems, Excision (ICD-10-PCS; 2020-07-06)
PROC: 0F9G8ZZ Drainage of Pancreas, Via Natural or Artificial Opening Endoscopic (ICD-10-PCS; 2020-07-06)
PROC: 0FD98ZX Extraction of Common Bile Duct, Via Natural or Artificial Opening Endoscopic, Diagnostic (ICD-10-PCS; 2020-07-06)
PROC: BF141ZZ Fluoroscopy of Gallbladder, Bile Ducts and Pancreatic Ducts using Low Osmolar Contrast (ICD-10-PCS; 2020-07-06)
PROC: 0F798DZ Dilation of Common Bile Duct with Intraluminal Device, Via Natural or Artificial Opening Endoscopic (ICD-10-PCS; principal; 2020-07-06 14:00)
DX: A41.9 Sepsis, unspecified organism (principal); R65.21 Severe sepsis with septic shock; K80.63 Calculus of gallbladder and bile duct with acute cholecystitis with obstruction; E87.1 Hypo-osmolality and hyponatremia; I48.20 Chronic atrial fibrillation, unspecified; K86.9 Disease of pancreas, unspecified; I49.5 Sick sinus syndrome; I48.91 Unspecified atrial fibrillation; I25.119 Atherosclerotic heart disease of native coronary artery with unspecified angina pectoris; F32.9 Major depressive disorder, single episode, unspecified; D64.9 Anemia, unspecified; E78.5 Hyperlipidemia, unspecified; E86.1 Hypovolemia; F03.90 Unspecified dementia, unspecified severity, without behavioral disturbance, psychotic disturbance, mood disturbance, and anxiety; R59.9 Enlarged lymph nodes, unspecified; I95.9 Hypotension, unspecified; Z95.0 Presence of cardiac pacemaker; Z20.828 Contact with and (suspected) exposure to other viral communicable diseases; E80.6 Other disorders of bilirubin metabolism
CPT/HCPCS: 38505; 71260; 72193; 74160; 76700; 76942; 80074; 82271; 82948; 83605; 83735; 84145; 84439; 84443; 85014; 85018; 86850; 86870; 86900; 86901; 86902; 86905; 86922; 87040; 87426; 93005; 93306; 99244; A9585; C9113; G0378; G0480; G0481; J0330; J2250; J2270; J2310; J2370; J2543; J2704; J3010; J3490; J7030; J7040; J7050; J7060; P9016; Q9961; 36415-L1; 36415-TC; 71045-TC; 80061-TC